=== PATIENT | male | born 1945 | race Caucasian/White ===

== ENCOUNTER 2020-12-07 06:43 | Day surgery (SDC) | payer MEDICARE ==
[~2020-12-07 06:43] MED LIST: BACTERIOSTATIC SODIUM CHLORIDE 0.9% 30 ML VIAL INFILTRATI ONE; LACTATED RINGERS 1,000 ML IV SCH; LACTATED RINGERS 1,000 ML ONE
[2020-12-07] MEDS ORDERED: ROCURONIUM 50 MG/5 ML INJ IV ONE (07:14)
[2020-12-07] MEDS ORDERED: propofoL 200 MG/20 ML VIAL IV ONE (07:14)
[2020-12-07] MEDS ORDERED: LIDOCAINE MPF (2%) 20 MG/1 ML VIAL 5 ML ONE (07:14)
[2020-12-07] MEDS ORDERED: ONDANSETRON 4 MG/2 ML INJ IV PRN (07:15)
[2020-12-07] MEDS ORDERED: HYDROmorphone 1 MG/1 ML INJ IV PRN ×2 (07:15)
--- NOTE | 2020-12-07 07:16 | Anesthesia Day of Surgery ---
Anesthesia Day of Surgery - Day of Surgery Patient Examined: Yes Patient H&P Reviewed: Yes Patient is NPO: Yes (Took Plavix yesterday evening)
--- NOTE | 2020-12-07 07:18 | Anesthesia Consultation ---
Anesthesia Consult and Med Hx Date of service: 12/07/20 - Airway Anesthetic Teeth Evaluation: Dentures, Edentulous ROM Head & Neck: Adequate Mental/Hyoid Distance: Adequate Mallampati Class: Class II Intubation Access Assessment: Good - Pre-Operative Health Status ASA Pre-Surgery Classification: ASA3 Proposed Anesthetic Plan: General - Pulmonary Hx Smoking: Yes - Cardiovascular System Hx Hypertension: Yes Hx Peripheral Vascular Disease: Yes (?) - Other Systems Hx Alcohol Use: Yes (Daily) - Additional Comments Anesthesia Medical History Comments: Mongolian speaking only. at bedside and language line used
[2020-12-07] MEDS ORDERED: LIDOCAINE (1%) 10 MG/1 ML VIAL 20 ML MDV ONE (07:28)
[2020-12-07] MEDS ORDERED: BUPIVACAINE/PF (0.5%) 5 MG/1 ML 30 ML VIAL INFILTRATI ONE ×2 (07:28→08:40)
[2020-12-07] MEDS ORDERED: HYDROCORTISONE SOD SUCC 100 MG/2 ML VIAL ONE (07:32)
[2020-12-07] MEDS ORDERED: ACETAMINOPHEN 325 MG TAB ONE (07:33)
[2020-12-07] MEDS ORDERED: CELECOXIB 200 MG CAP ONE (07:33)
[2020-12-07] MEDS ORDERED: ceFAZolin/STERILE WATER 2 GM/20 ML SYRINGE IV NR (08:00)
[2020-12-07] MEDS ORDERED: PHENYLEPHRINE/NS 1,000 MCG/10 ML SYRINGE (OR USE) IV ONE (08:09)
[2020-12-07] MEDS ORDERED: BACITRACIN ZINC OINT 28.4 GM TP ONE ×2 (08:27→08:41)
[2020-12-07] MEDS ORDERED: LIDOCAINE (1%) 10 MG/1 ML VIAL 20 ML MDV INFILTRATI ONE (08:40)
[2020-12-07] MEDS ORDERED: LIDOCAINE JELLY (2%) 5 ML TOPICAL ONE (08:46)
[2020-12-07] MEDS ORDERED: ONDANSETRON 4 MG/2 ML INJ ONE (08:55)
[2020-12-07] MEDS ORDERED: KETOROLAC 30 MG/1 ML INJ ONE (08:55)
[2020-12-07] MEDS ORDERED: LIDOCAINE 2% UROJECT 10 ML JELLY UR ONE (08:58)
--- NOTE | 2020-12-07 09:58 | XRay Report ---
RIGHT FOOT 3 VIEWS INDICATION: achilles tendon lengthening, amputation of r foot. COMPARISON: No relevant prior imaging study available. FINDINGS: There has been amputation of the right toes and distal metatarsals. No radiographic evidence of acute osteomyelitis. There is mild soft tissue swelling at the amputation site with suggestion of soft tissue gas adjacent to the distal tip of the residual first metatarsal. Achilles enthesopathy is noted. IMPRESSION: 1. Soft tissue swelling with probable mild soft tissue gas at the distal stump adjacent to the residu al first metatarsal. Correlate clinically for cellulitis/ulcer here. There is no radiographic evidenc e of acute osteomyelitis. Signer Name: Emir Jimenez MD Signed: 12/07/2020 9:54 AM Workstation Name: [email or web address]
[2020-12-07 11:33] VITALS: BP 121/68
--- NOTE | 2020-12-08 09:49 | Operative Report ---
PREOPERATIVE DIAGNOSIS: Gangrene with Equinus, right foot. POSTOPERATIVE DIAGNOSIS: Gangrene with Equinus, right foot. SURGICAL PROCEDURES: 1. Percutaneous Achilles tendon lengthening, right foot. 2. Transmetatarsal amputation, right foot with primary closure and application of a walker boot. ANESTHESIA: General. TOURNIQUET: None. ESTIMATED BLOOD LOSS: Less than 30 mL. PROCEDURE IN DETAIL: The patient was brought into the operating room, placed on the operating table in supine position with a bump placed under the right heel. At this time, after adequate atraumatic general anesthesia was performed, 24 mL of a 1:1 mixture of 1% lidocaine plain plus 0.5% Marcaine plain was infiltrated in the posterior aspect of the lower leg and the distal aspect of the forefoot after cleansing with alcohol. At this time, the foot was then scrubbed, prepped and draped in the usual aseptic manner along with the leg and attention was directed to the posterior aspect of the right lower leg with 2 percutaneous incisions was made with a #11 blade 0.3 cm in width to lateral, one lateral proximal one lateral distal and a central medial percutaneous incision. At this time, the foot was then dorsiflexed and there was noted to be substantial increase in dorsiflexion at the affected area. The area was flushed copiously with normal sterile saline and yajaira stitches was placed with 3-0 Prolene in the affected area. At this time, attention was directed to the gangrenous forefoot in which a skin marker was used to outline the potential incision sites. At this time with the use of a 10 blade, dissection was carried deep down to the metatarsal bone with care being taken to protect all vital neurovascular structures as needed. After adequate removal of all bones including the proximal bases of the phalanxes of these digits 1 through 5. The heads of the metatarsals was removed just proximal to the metatarsal neck with care being taken to remove the sesamoid apparatus of the first metatarsophalangeal joint without incident. At this time, the area was contoured at the bony edges of the metatarsals 1 through 5 with care being taken to make a medial to lateral and plantar to proximal cut of the first metatarsal head along with a plantar to proximal dorsal cut was done at the digits 2-4 along with a distal to proximal, ___ to distal medial to lateral cut of the fifth metatarsal head areas, which was contoured with a rasp and 4.0 zara and flushed copiously with normal sterile saline, let it be noted that cultures were taken before the pulse lavage was performed with gentamicin mixed with aerobic, anaerobic and fungal cultures. The flap was remodeled and the stump was reapproximated with both 2-0 and 3-0 Vicryl and 3-0 and 4-0 Prolene. The patient tolerated the procedure and anesthesia well. The patient was given 30 mg of Toradol for discomfort. Let it be noted that lidocaine gel was applied to the affected forefoot for vasodilation and more circulation along with bacitracin ointment, Adaptic and sterile compressive dressing. The patient was placed in a walking boot, will be discharged home after recovery with both written and oral instructions with weightbearing to tolerance. JOB# [id number] [facility]
== END 2020-12-07 11:20 | disposition home or self-care (01) ==
LOC: OR 06:43
PROVIDERS: ATTEND Podiatrist Foot & Ankle Surgery
DX: I96 Gangrene, not elsewhere classified (principal); I70.291 Other atherosclerosis of native arteries of extremities, right leg; I10 Essential (primary) hypertension; I07.1 Rheumatic tricuspid insufficiency; E78.00 Pure hypercholesterolemia, unspecified; F17.210 Nicotine dependence, cigarettes, uncomplicated; Z72.89 Other problems related to lifestyle; Z79.899 Other long term (current) drug therapy
CPT/HCPCS: 27899; 28805; 73630; 87075; 87076; 87116; 87186; 88305; 88311; J0690; J1170; J1720; J1885; J2370; J2405; J2704; J7120